=== PATIENT | male | born 1945 | race Hispanic/Latino ===

== ENCOUNTER 2022-01-05 21:49 | Inpatient (IN) | payer MEDICARE ==
[~2022-01-05] VITALS: Ht 177.8 cm; Wt 66.4 kg
[2022-01-05] MEDS ORDERED: ACETAMINOPHEN 325 MG TAB PO STA (21:59)
[2022-01-05 22:39] LABS: BASOPHILS # (AUTO) 0.1 (0.0-0.1); BASOPHILS % 0.5 % (0.0-1.0); EOSINOPHILS # (AUTO) 0.5 (0.0-0.4); EOSINOPHILS % 4.1 % (0.0-6.0); HEMATOCRIT 36.1 % (38.2-49.6); HEMOGLOBIN 11.3 g/dL (14.0-18.0); LYMPHOCYTES # (AUTO) 3.3 (1.0-3.2); MEAN CORPUSCULAR HEMOGLOBIN 30.5 pg (28-32); MEAN CORPUSCULAR HGB CONC 31.3 g/dL (31-35); MEAN CORPUSCULAR VOLUME 97.6 fL (81-99); MONOCYTES # (AUTO) 1.1 (0.2-0.8); MONOCYTES % 9.3 % (4.4-11.3); NEUTROPHILS # (AUTO) 6.8 (2.1-6.9); NEUTROPHILS % 57.8 % (38.7-80.0); PLATELET COUNT 358 x10e3/uL (140-360); RED CELL DISTRIBUTION WIDTH 14.5 % (11.7-14.4)
[2022-01-05 22:55] LABS: ALBUMIN 2.3 g/dL (3.5-5.0); ALBUMIN/GLOBULIN RATIO 0.5 (0.8-2.0); ANION GAP 20.9 mmol/L (8-16); CALCIUM 9.3 mg/dL (8.4-10.2); CREATININE, SERUM 2.03 mg/dL (0.72-1.25); POTASSIUM 3.9 mmol/L (3.5-5.1)
[2022-01-05 23:00] LABS: CREATINE KINASE MB 0.5 ng/mL (0-5.0)
[2022-01-06] VITALS (65 sets, daily range): BP systolic 72–170; BP diastolic 50–150
[2022-01-06] MEDS ORDERED: SODIUM CHLORIDE 0.9% 1000ML 1,000 ML IV STA ×3 (00:08→00:36)
[2022-01-06 00:12] LABS: CLARITY,URINE CLOUDY (CLEAR); COLOR,URINE YELLOW (YELLOW); KETONES,URINE TRACE (NEGATIVE); LEUKOCYTE ESTERASE ,URINE LARGE (NEGATIVE); NITRITE,URINE NEGATIVE (NEGATIVE); PROTEIN,URINE DIPSTICK 2+ (NEGATIVE); URINE UROBILINOGEN 0.2 mg/dL (0.2 - 1)
[2022-01-06 00:18] LABS: BACTERIA,URINE MODERATE /HPF; EPITHELIAL CELLS,URINE MANY /LPF; WBC,URINE (MAN) >50 /HPF (0-5)
[2022-01-06] MEDS ORDERED: SODIUM CHLORIDE 0.9% 1000ML 2,000 ML ONE (00:34)
[2022-01-06] MEDS: SODIUM CHLORIDE 0.9% 1000ML 1,000 ML IV SCH ×4 (03:30→23:58)
[2022-01-06] MEDS ORDERED: ALBUTEROL SULF 0.083% NEB SOLN 3 ML NEB NEB PRN (04:15)
[2022-01-06] MEDS ORDERED: DEXTROSE 50% SYRINGE 50 ML IV PRN (04:15)
[2022-01-06] MEDS ORDERED: GENTAMICIN 80MG/NS 100 ML 100 ML IV SCH (04:15)
[2022-01-06] MEDS ORDERED: HYDRALAZINE HCL 20 MG/ML VIAL IV PRN (04:15)
[2022-01-06] MEDS ORDERED: ONDANSETRON HCL INJ 2MG/ML 2ML 2 MG/ML VIAL IV PRN (04:15)
[2022-01-06] MEDS ORDERED: LACTATED RINGER'S 1,000 ML INJ ONE (04:15)
[2022-01-06] MEDS ORDERED: THIAMINE HCL INJ 100 MG/ML 2ML VIAL IV ONE (04:15)
[2022-01-06] MEDS ORDERED: MELATONIN 3 MG TAB PO PRN (04:15)
[2022-01-06] MEDS ORDERED: ACETAMINOPHEN 325 MG TAB PO PRN (04:15)
[2022-01-06 04:47] LABS: ABG HCO3 27 mmol/L (22-26); ABG PCO2 51 mmHg (35-45); ABG PH 7.33 (7.35-7.45); ABG PO2 192 mmHg (80-105); ABG TCO2 28
[2022-01-06] MEDS ORDERED: Vancomycin IV 1 GM in SODIUM CHLORIDE 0.9% 250ML 250 ML IV STA (04:50)
[2022-01-06] MEDS ORDERED: IPRATROPIUM BROMIDE 0.02% 2.5 ML NEB NEB SCH (07:00)
[2022-01-06] MEDS: INSULIN REGULAR, HUMAN 100 UNIT/1 ML SQ SCH ×4 (07:30→21:10)
[2022-01-06] MEDS ORDERED: MULTIVITAMINS/MINERALS TAB PO SCH (09:00)
[2022-01-06] MEDS: METHYLPREDNISOLONE SOD SUCC 40 MG/ML VIAL 1ML IV SCH ×2 (09:12→21:45)
[2022-01-06] MEDS: MULTIVITAMINS/MINERALS TAB PO SCH (09:12)
[2022-01-06] MEDS: PANTOPRAZOLE SOD 40 MG TABEC PO SCH (09:12)
[2022-01-06] MEDS: ENOXAPARIN SOD INJ 60 MG/0.6 ML SYR SC SCH ×2 (09:12→21:45)
[2022-01-06] MEDS ORDERED: FUROSEMIDE INJ 10 MG/ML 2 ML VIAL IV ONE (12:15)
[2022-01-06 19:11] LABS: CREATINE KINASE MB 1.7 ng/mL (0-5.0)
[2022-01-07] VITALS (29 sets, daily range): BP systolic 77–105; BP diastolic 52–74
[2022-01-07 05:27] LABS: BASOPHILS % 0.2 % (0.0-1.0); HEMOGLOBIN 9.2 g/dL (14.0-18.0); LYMPHOCYTES # (AUTO) 0.9 (1.0-3.2); LYMPHOCYTES % 16.6 % (18.0-39.1); MEAN CORPUSCULAR HEMOGLOBIN 30.6 pg (28-32); MEAN CORPUSCULAR HGB CONC 30.7 g/dL (31-35); MEAN CORPUSCULAR VOLUME 99.7 fL (81-99); MONOCYTES # (AUTO) 0.1 (0.2-0.8); MONOCYTES % 2.2 % (4.4-11.3); NEUTROPHILS # (AUTO) 4.5 (2.1-6.9); NEUTROPHILS % 80.6 % (38.7-80.0); PLATELET COUNT 216 x10e3/uL (140-360); RED BLOOD COUNT 3.01 x10e6/uL (4.3-5.7); RED CELL DISTRIBUTION WIDTH 14.4 % (11.7-14.4)
[2022-01-07 05:45] LABS: ALBUMIN 1.9 g/dL (3.5-5.0); ALBUMIN/GLOBULIN RATIO 0.5 (0.8-2.0); ALKALINE PHOSPHATASE 46 IU/L (40-150); ANION GAP 17.7 mmol/L (8-16); BLOOD UREA NITROGEN 49 mg/dL (7-26); BUN/CREATININE RATIO 27 (6-25); CARBON DIOXIDE 22 mmol/L (22-29); CHLORIDE 108 mmol/L (98-107); CREATININE, SERUM 1.82 mg/dL (0.72-1.25); GLUCOSE 164 mg/dL (74-118); POTASSIUM 3.7 mmol/L (3.5-5.1); SODIUM 144 mmol/L (136-145)
[2022-01-07 06:22] LABS: ALANINE AMINOTRANSFERASE < 6 IU/L (0-55)
[2022-01-07] MEDS ORDERED: ELIQUIS5 MG PO (07:07)
[2022-01-07] MEDS ORDERED: FLUTICASONE-SA1 EAC4 INH (07:07)
[2022-01-07] MEDS ORDERED: LASIX20 MG PO (07:07)
[2022-01-07] MEDS ORDERED: LEXAPRO20 MG PO (07:07)
[2022-01-07] MEDS ORDERED: METOPROLOL TART25 MG PO (07:07)
[2022-01-07] MEDS ORDERED: FINASTERIDE5 MG PO (07:07)
[2022-01-07] MEDS ORDERED: ATIVAN1 MG PO (07:07)
[2022-01-07] MEDS ORDERED: METFORMIN HCL500 MG PO (07:07)
[2022-01-07] MEDS ORDERED: CHOLECALCIFEROL1 GM (07:07)
[2022-01-07] MEDS ORDERED: MIDODRINE HCL5 MG PO (07:09)
[2022-01-07] MEDS ORDERED: TRAZODONE HCL50 MG PO (07:09)
[2022-01-07] MEDS ORDERED: VITAMIN B-1100 M1 PO (07:09)
[2022-01-07] MEDS ORDERED: PANTOPRAZOLE SO40 MG PO (07:09)
[2022-01-07] MEDS ORDERED: MULTI-VITAMIN1 EACH PO (07:09)
[2022-01-07] MEDS: INSULIN REGULAR, HUMAN 100 UNIT/1 ML SQ SCH ×4 (07:30→21:00)
[2022-01-07] MEDS: PANTOPRAZOLE SOD 40 MG TABEC PO SCH (08:30)
[2022-01-07] MEDS: ENOXAPARIN SOD INJ 60 MG/0.6 ML SYR SC SCH (08:30)
[2022-01-07] MEDS: METHYLPREDNISOLONE SOD SUCC 40 MG/ML VIAL 1ML IV SCH ×2 (08:30→20:53)
[2022-01-07] MEDS: MULTIVITAMINS/MINERALS TAB PO SCH (08:30)
[2022-01-07 08:42] LABS: CREATINE KINASE 12 IU/L (30-200)
[2022-01-07] MEDS ORDERED: TRAZODONE HCL 50 MG TAB PO PRN (09:45)
[2022-01-07] MEDS ORDERED: ALBUTEROL/IPRATROPIUM 3 ML NEB NEB PRN (09:45)
[2022-01-07] MEDS: MIDODRINE HCL 5 MG TABLET PO SCH ×2 (10:45→18:10)
[2022-01-07] MEDS: METOPROLOL TARTRATE 25 MG TAB PO SCH ×2 (11:00→20:53)
[2022-01-07] MEDS: APIXABAN 5 MG TABLET PO SCH ×2 (11:00→20:53)
[2022-01-07] MEDS: LORAZEPAM 1 MG TAB PO PRN (12:23)
[2022-01-07] MEDS: METFORMIN HCL 500 MG TAB PO SCH ×2 (12:24→18:10)
[2022-01-07] MEDS: SODIUM CHLORIDE 0.9% 1000ML 1,000 ML IV SCH (18:25)
[2022-01-08] VITALS: BP 107/81
[2022-01-08 04:00] VITALS: BP 123/90
[2022-01-08] MEDS: LORAZEPAM 1 MG TAB PO PRN ×3 (05:00→22:57)
[2022-01-08] MEDS: INSULIN REGULAR, HUMAN 100 UNIT/1 ML SQ SCH ×4 (07:30→20:48)
[2022-01-08 07:43] VITALS: BP 109/75
[2022-01-08] MEDS ORDERED: PANTOPRAZOLE SOD 40 MG TABEC PO SCH (09:00)
[2022-01-08] MEDS: PANTOPRAZOLE SOD 40 MG TABEC PO SCH (10:29)
[2022-01-08] MEDS: METHYLPREDNISOLONE SOD SUCC 40 MG/ML VIAL 1ML IV SCH ×2 (10:31→21:00)
[2022-01-08] MEDS: METFORMIN HCL 500 MG TAB PO SCH ×2 (10:31→17:00)
[2022-01-08] MEDS: MULTIVITAMINS/MINERALS TAB PO SCH (10:32)
[2022-01-08] MEDS: ESCITALOPRAM OXALATE 10 MG TAB PO SCH (10:32)
[2022-01-08] MEDS: FINASTERIDE 5 MG TAB PO SCH (10:32)
[2022-01-08] MEDS: APIXABAN 5 MG TABLET PO SCH ×2 (10:32→21:00)
[2022-01-08] MEDS: FUROSEMIDE 20 MG TAB PO SCH (10:32)
[2022-01-08] MEDS: MIDODRINE HCL 5 MG TABLET PO SCH ×2 (10:32→17:00)
[2022-01-08] MEDS: METOPROLOL TARTRATE 25 MG TAB PO SCH ×2 (10:37→21:00)
[2022-01-08 11:31] VITALS: BP 99/68
[2022-01-08 12:09] LABS: BASOPHILS % 0.1 % (0.0-1.0); HEMATOCRIT 28.8 % (38.2-49.6); HEMOGLOBIN 8.7 g/dL (14.0-18.0); LYMPHOCYTES # (AUTO) 1.5 (1.0-3.2); LYMPHOCYTES % 16.6 % (18.0-39.1); MEAN CORPUSCULAR HEMOGLOBIN 30.1 pg (28-32); MEAN CORPUSCULAR HGB CONC 30.2 g/dL (31-35); MEAN CORPUSCULAR VOLUME 99.7 fL (81-99); MONOCYTES # (AUTO) 0.5 (0.2-0.8); MONOCYTES % 5.4 % (4.4-11.3); NEUTROPHILS % 77.2 % (38.7-80.0); PLATELET COUNT 224 x10e3/uL (140-360); RED BLOOD COUNT 2.89 x10e6/uL (4.3-5.7); RED CELL DISTRIBUTION WIDTH 14.5 % (11.7-14.4)
[2022-01-08] MEDS: FLUCONAZOLE 100 MG TAB PO SCH (12:15)
[2022-01-08 12:34] LABS: ANION GAP 14.6 mmol/L (8-16); CREATININE, SERUM 1.41 mg/dL (0.72-1.25); POTASSIUM 3.6 mmol/L (3.5-5.1)
[2022-01-08 15:31] VITALS: BP 115/68
[2022-01-08 20:00] VITALS: BP 117/84
[2022-01-09] VITALS (7 sets, daily range): BP systolic 124–146; BP diastolic 70–89
[2022-01-09 07:09] LABS: BASOPHILS % 0.3 % (0.0-1.0); EOSINOPHILS % 0.1 % (0.0-6.0); HEMATOCRIT 30.9 % (38.2-49.6); HEMOGLOBIN 9.3 g/dL (14.0-18.0); LYMPHOCYTES # (AUTO) 1.9 (1.0-3.2); LYMPHOCYTES % 24.8 % (18.0-39.1); MEAN CORPUSCULAR HEMOGLOBIN 30.4 pg (28-32); MEAN CORPUSCULAR HGB CONC 30.1 g/dL (31-35); MONOCYTES # (AUTO) 0.7 (0.2-0.8); MONOCYTES % 9.2 % (4.4-11.3); NEUTROPHILS # (AUTO) 4.9 (2.1-6.9); NEUTROPHILS % 64.5 % (38.7-80.0); PLATELET COUNT 213 x10e3/uL (140-360); RED BLOOD COUNT 3.06 x10e6/uL (4.3-5.7); RED CELL DISTRIBUTION WIDTH 14.6 % (11.7-14.4)
[2022-01-09] MEDS: INSULIN REGULAR, HUMAN 100 UNIT/1 ML SQ SCH ×4 (07:30→20:50)
[2022-01-09 07:48] LABS: ALBUMIN 2.1 g/dL (3.5-5.0); ALBUMIN/GLOBULIN RATIO 0.6 (0.8-2.0); ANION GAP 14.3 mmol/L (8-16); CALCIUM 8.1 mg/dL (8.4-10.2); CREATININE, SERUM 1.18 mg/dL (0.72-1.25); MAGNESIUM 1.4 MG/DL (1.3-2.1); POTASSIUM 4.3 mmol/L (3.5-5.1)
[2022-01-09] MEDS ORDERED: SENNOSIDES 8.6 MG TAB PO SCH (09:00)
[2022-01-09] MEDS ORDERED: DOCUSATE SODIUM 100 MG CAP PO SCH (09:00)
[2022-01-09] MEDS: FINASTERIDE 5 MG TAB PO SCH (09:54)
[2022-01-09] MEDS: FLUCONAZOLE 100 MG TAB PO SCH (09:55)
[2022-01-09] MEDS: APIXABAN 5 MG TABLET PO SCH ×2 (09:56→21:00)
[2022-01-09] MEDS: MIDODRINE HCL 5 MG TABLET PO SCH ×2 (09:56→17:39)
[2022-01-09] MEDS: FUROSEMIDE 20 MG TAB PO SCH (09:56)
[2022-01-09] MEDS: MULTIVITAMINS/MINERALS TAB PO SCH (09:56)
[2022-01-09] MEDS: ESCITALOPRAM OXALATE 10 MG TAB PO SCH (10:01)
[2022-01-09] MEDS: METOPROLOL TARTRATE 25 MG TAB PO SCH ×2 (10:02→21:00)
[2022-01-09] MEDS: METHYLPREDNISOLONE SOD SUCC 40 MG/ML VIAL 1ML IV SCH ×2 (10:05→21:00)
[2022-01-09] MEDS ORDERED: MAGNESIUM SULFATE 2GM/50ML 50 ML IV ONE ×2 (10:15→15:30)
[2022-01-09] MEDS: PANTOPRAZOLE SOD 40 MG TABEC PO SCH (10:38)
[2022-01-09] MEDS: METFORMIN HCL 500 MG TAB PO SCH ×2 (10:39→17:38)
[2022-01-09] MEDS: NYSTATIN 100,000 UNITS/GM CRM 30GM TUBE TOP SCH ×3 (11:15→18:01)
[2022-01-09] MEDS: LORAZEPAM 1 MG TAB PO PRN (17:38)
[2022-01-10] VITALS: BP 144/81
[2022-01-10 04:00] VITALS: BP 119/77
[2022-01-10 07:00] LABS: BASOPHILS % 0.3 % (0.0-1.0); EOSINOPHILS % 0.3 % (0.0-6.0); HEMATOCRIT 30.4 % (38.2-49.6); HEMOGLOBIN 9.1 g/dL (14.0-18.0); LYMPHOCYTES % 27.4 % (18.0-39.1); MEAN CORPUSCULAR HEMOGLOBIN 30.2 pg (28-32); MEAN CORPUSCULAR HGB CONC 29.9 g/dL (31-35); MONOCYTES # (AUTO) 0.6 (0.2-0.8); MONOCYTES % 7.6 % (4.4-11.3); NEUTROPHILS # (AUTO) 4.5 (2.1-6.9); NEUTROPHILS % 61.7 % (38.7-80.0); PLATELET COUNT 215 x10e3/uL (140-360); RED BLOOD COUNT 3.01 x10e6/uL (4.3-5.7); RED CELL DISTRIBUTION WIDTH 14.7 % (11.7-14.4)
[2022-01-10 07:29] LABS: ANION GAP 12.8 mmol/L (8-16); CALCIUM 7.9 mg/dL (8.4-10.2); CREATININE, SERUM 0.98 mg/dL (0.72-1.25); MAGNESIUM 1.9 MG/DL (1.3-2.1); POTASSIUM 3.8 mmol/L (3.5-5.1)
[2022-01-10] MEDS: INSULIN REGULAR, HUMAN 100 UNIT/1 ML SQ SCH ×2 (07:30→12:37)
[2022-01-10 07:49] VITALS: BP 113/67
[2022-01-10] MEDS: METFORMIN HCL 500 MG TAB PO SCH (08:03)
[2022-01-10] MEDS: PANTOPRAZOLE SOD 40 MG TABEC PO SCH (08:03)
[2022-01-10] MEDS: METHYLPREDNISOLONE SOD SUCC 40 MG/ML VIAL 1ML IV SCH (08:03)
[2022-01-10] MEDS: LORAZEPAM 1 MG TAB PO PRN ×2 (08:03→15:37)
[2022-01-10] MEDS: ESCITALOPRAM OXALATE 10 MG TAB PO SCH (08:06)
[2022-01-10] MEDS: APIXABAN 5 MG TABLET PO SCH (08:06)
[2022-01-10] MEDS: MULTIVITAMINS/MINERALS TAB PO SCH (08:07)
[2022-01-10] MEDS: NYSTATIN 100,000 UNITS/GM CRM 30GM TUBE TOP SCH (08:07)
[2022-01-10] MEDS: MIDODRINE HCL 5 MG TABLET PO SCH (08:07)
[2022-01-10] MEDS: FINASTERIDE 5 MG TAB PO SCH (08:07)
[2022-01-10] MEDS: FLUCONAZOLE 100 MG TAB PO SCH (08:11)
[2022-01-10] MEDS: FUROSEMIDE 20 MG TAB PO SCH (08:11)
[2022-01-10 08:12] VITALS: BP 113/67
[2022-01-10 08:14] VITALS: BP 113/67
[2022-01-10] MEDS: METOPROLOL TARTRATE 25 MG TAB PO SCH (10:07)
[2022-01-10 11:22] VITALS: BP 146/121
[2022-01-10] MEDS ORDERED: SODIUM CHLORIDE 0.9% 250ML 250 ML ONE (11:45)
[2022-01-10] MEDS ORDERED: ONDANSETRON HCL 4 MG ORAL DISINTEGRATING TAB PO PRN (14:00)
[2022-01-11] MEDS ORDERED: FLUCONAZOLE 100 MG TAB PO SCH (09:00)
== END 2022-01-10 15:54 | DRG 871 ==
LOC: ER 21:58 → ERHOLD 01-06 01:39 → ICU 01-06 03:04 → MED/SURG2 01-07 16:04
DX: B37.7 Candidal sepsis (principal); E43 Unspecified severe protein-calorie malnutrition; G93.41 Metabolic encephalopathy; N17.9 Acute kidney failure, unspecified; R64 Cachexia; E87.1 Hypo-osmolality and hyponatremia; B37.49 Other urogenital candidiasis; E11.9 Type 2 diabetes mellitus without complications; Z86.711 Personal history of pulmonary embolism; D64.9 Anemia, unspecified; F39 Unspecified mood [affective] disorder; Z68.21 Body mass index [BMI] 21.0-21.9, adult; R31.9 Hematuria, unspecified; J43.2 Centrilobular emphysema; Z79.84 Long term (current) use of oral hypoglycemic drugs; E88.09 Other disorders of plasma-protein metabolism, not elsewhere classified
CPT/HCPCS: 36415; 36600; 51700; 71045; 76770; 80048; 80053; 81001; 82550; 82553; 82805; 82948; 83605; 83735; 84484; 85025; 87040; 87086; 87324; 87449; 87493; 93005; 94660; 94799; 99251; 99284; J1650; J1817; J1940; J2543; J2920; J3370; J3411; J3475; J7030; J7050; J7121